=== PATIENT | male | born 1930 | race Caucasian/White ===

== ENCOUNTER 2017-03-14 05:53 | Day surgery (SDC) | payer MEDICARE, OTHER ==
[~2017-03-14] VITALS: Ht 152.4 cm; Wt 59.5 kg
[2017-03-14] VITALS (39 sets, daily range): BP systolic 64–165; BP diastolic 25–83; PULSE 54–62; RESP 10–30
[~2017-03-14 05:53] MED LIST: BENA20TA48 PO; CARV3.12 PO; CLOP75TA27 PO; EZET10TA3 PO; HYDR-3011 PO; INSU100V18 SC; NIT4 SL; PANT40TA4 PO; TEMA15CA PO
[2017-03-14] MEDS ORDERED: SOD CHLORIDE 0.9% 1,000 ML IV SCH ×2 (06:00→11:58)
[2017-03-14] MEDS ORDERED: FURO20TA3 PO (06:49)
[2017-03-14] MEDS ORDERED: COU1 PO (06:50)
[2017-03-14] MEDS ORDERED: SITA50TA2 PO (06:52)
[2017-03-14 07:02] LABS: ADD SCAN DIFF NO
[2017-03-14 07:05] LABS: BASOPHILS % 0.4 % (0.0-2.0); EOSINOPHILS # 0.1 10^3/ul (0.0-0.5); EOSINOPHILS % 2.4 % (0.0-7.0); HEMOGLOBIN 12.6 g/dl (14.0-18.0); LYMPHOCYTES # 0.9 10^3/ul (0.8-2.9); LYMPHOCYTES % 17.4 % (15.0-51.0); MEAN CORPUSCULAR HEMOGLOBIN 31.3 pg (29.0-33.0); MEAN CORPUSCULAR HGB CONC 34.1 g/dl (32.0-37.0); MEAN CORPUSCULAR VOLUME 91.8 fl (82.0-101.0); MEAN PLATELET VOLUME 10.9 fl (7.4-10.4); MONOCYTE # 0.6 10^3/ul (0.3-0.9); MONOCYTES % 10.7 % (0.0-11.0); NEUTROPHIL # 3.7 10^3/ul (1.6-7.5); NEUTROPHILS % 68.7 % (39.0-77.0); PLATELET COUNT 201 10^3/UL (140-415); RED BLOOD COUNT 4.03 10^6/ul (4.70-6.10); RED CELL DISTRIBUTION WIDTH 13.2 % (11.5-14.5); WHITE BLOOD COUNT 5.4 10^3/ul (4.8-10.8)
[2017-03-14 07:27] LABS: INR 1.28; PARTIAL THROMBOPLASTIN TIME 26.9 Sec (25.0-35.0); PROTIME 16.1 Sec (12.2-14.2); PT RATIO 1.3
[2017-03-14 07:42] LABS: CALCIUM 9.3 mg/dl (8.4-10.2); CREATININE 1.17 mg/dl (0.61-1.24); POTASSIUM 4.2 mmol/L (3.5-5.1)
[2017-03-14] MEDS ORDERED: MIDAZOLAM 1 MG/ML 2 ML INJ ONE ×2 (08:16→10:10)
[2017-03-14] MEDS ORDERED: FENTAnyl 50 MCG/ML VIAL ONE ×2 (08:16→10:10)
[2017-03-14] MEDS ORDERED: LIDOCAINE 1% (MDV) 20 ML INJ ONE (08:16)
[2017-03-14] MEDS ORDERED: IODIXANOL LOCM 100 ML BTL ONE ×2 (08:16→11:05)
[2017-03-14] MEDS ORDERED: HEPARIN 1000 UNITS/NS (A-LINE) 1,000 ML ONE (08:16)
[2017-03-14] MEDS ORDERED: VERAPAMIL 5 MG INJ ONE (09:02)
[2017-03-14] MEDS ORDERED: NITROGLYCERIN 50 MG/D5W (PMX) 250 ML ONE (09:05)
[2017-03-14] MEDS ORDERED: SOD CHLORIDE 0.9% 1,000 ML ONE (09:47)
[2017-03-14] MEDS ORDERED: CLOPIDOGREL 300 MG TAB ONE (11:33)
[2017-03-14] MEDS ORDERED: ASPIRIN 325 MG TAB ONE (11:33)
[2017-03-14] MEDS ORDERED: ACETAMINOPHEN 325 MG TAB PO PRN (12:00)
[2017-03-14] MEDS ORDERED: AL HYDROX/MG HYDROX/SIMETH 30 ML CUP PO PRN (12:00)
[2017-03-14] MEDS ORDERED: morphine 2 MG INJ IV PRN (12:00)
[2017-03-14] MEDS ORDERED: OXYCODONE/ACETAMINOPHEN (5/325) TAB PO PRN (12:00)
[2017-03-14] MEDS ORDERED: ONDANSETRON 4 MG INJ IV PRN (12:00)
--- NOTE | 2017-03-14 12:03 | PDOCDIS ---
Discharge Instructions CONDITION Patient Condition: Good HOME CARE INSTRUCTIONS: Diet Instructions: Low Fat /Cholesterol ACTIVITY: Activity Restrictions: Slowly Increase Activity Avoid heavy lifting (not more then 5 pounds for 4 days) Do not Drive (x 3 days) FOLLOW UP/APPOINTMENTS Appointments follow up with primary doctor follow up with "Coumadin" doctor for INR check in 3-4 days Anil Vaughan DO Mar 14, 2017 12:03
--- NOTE | 2017-03-14 13:42 | CARRPT ---
DATE OF PROCEDURE: 03/14/2017 PROCEDURES: 1. Distal abdominal aortogram with bilateral lower extremity runoff. 2. A third order catheter placement. 3. Orbital atherectomy of the mid right SFA, balloon angioplasty and drug- coated balloon angioplasty of the mid right SFA 5 x 150 mm Lutonix balloon. 4. Orbital atherectomy of the right popliteal into the PT region, balloon angioplasty and drug-coated balloon angioplasty of region with a 5 x 60 mm Lutonix balloon. 5. Interpretation and supervision of angiogram. 6. Left femoral artery approach. PATIENT HISTORY: This is an 87-year-old male with abnormal arterial lower extremity Dopplers and ABIs with lifestyle limiting claudication. DESCRIPTION OF PROCEDURE: Patient was brought to the clinical laboratory manager after informed consent. The patient was prepped and draped as per protocol. Left femoral artery access was obtained with a micropuncture kit and a 5-Armenian sheath was placed. We next used a 5-Armenian Omni flush, went up to the distal abdominal aorta. Distal abdominal aortogram was performed with bilateral lower extremity runoff. Patient with symptoms of lifestyle limiting claudication of the right lower extremity with severe disease noted in the mid right SFA as well as the popliteal. We used heparin for anticoagulation. We used a rim catheter to go up and over the iliac bifurcation and used an Advantage wire to go down to the right common femoral artery and used a 6-Armenian long sheath down into the right common femoral. We next used a V-18 wire to cross the mid lesions of the SFA down past the popliteal lesions into the peak into the peroneal. We next used a [employer] over wire catheter for support and switched out for a Viper wire and went down to near the ankle via the peroneal. We next used a 1.5 CSI atherectomy device then performed an atherectomy of the mid SFA with multiple runs. We next went down to the popliteal and did multiple runs with the CSI device. We next did balloon angioplasty of the popliteal into the PT trunk region. We next performed angioplasty within the mid SFA. A 5 mm balloon was used for both regions. Next, in the popliteal into the PT trunk region, we used a Lutonix 5 x 60 mm drug-coated balloon for prolonged inflation. We next used a 5 x 160 mm Lutonix drug-coated balloon in the mid SFA for lung inflations. There was an excellent angiographic result with no evidence of dissection. There was a 20% residual stenosis in the mid popliteal as well as 20% residual stenosis in the mid SFA. There was preserved lower extremity runoff with no evidence of embolization. All catheters and wires were removed. We switched out for a 6-Armenian short sheath to be pulled once ACT is appropriate. There were no immediate complications. FINDINGS: 1. Distal abdominal aorta with no significant disease. 2. Left side. Left common iliac, no significant disease. Proximal left external iliac 30% stenosis. Left common femoral distally 30% calcified stenosis. The left SFA with a proximal 50% stenosis, mid calcified 70% stenosis in tandem lesion was calcified region of at least 70% but difficult to ascertain given significant calcium. Left popliteal with mid calcified 30% stenosis. Anterior tibial proximal 30% stenosis and mid becomes a very small vessel with severe diffuse disease that becomes occluded. Posterior tibial with proximal 80% stenosis and mid 100% stenosis. The peroneal is patent all the way down to the ankle with multiple collaterals feeding the foot. 3. Right side. Right common iliac 10% disease. The right external iliac with mid 30% disease. Right common femoral with 20% diffuse disease. Right SFA with a proximal 30% stenosis and mid-multiple lesions of calcified disease with 90% and then 80% stenosis afterwards. The right popliteal with calcified 90% stenosis. The right anterior tibial with proximal 30% stenosis and monge out to a very small vessel with severe diffuse disease and subtotally occluded in the mid vessel. The right posterior tibial, 90% ostial disease and then proximal 100% occlusion. The peroneal with proximal 40% stenosis, patent down to the ankle with multiple collaterals feeding the foot DIAGNOSIS: Severe peripheral arterial disease with lifestyle limiting claudication. COMPLICATIONS: None. ESTIMATED BLOOD LOSS: Minimal. RECOMMENDATIONS: 1. Restart Coumadin. 2. Plavix therapy for a minimum of 1 month, but ideally longer if able to tolerate. 3. Endovascular Intervention of left lower extremity if symptomatic. Dictated By: TOM RILEY/MOISÉS Conf#: [id number] DID#: [id number] MTDD
--- NOTE | 2017-03-15 17:50 | RADRPT ---
Vent Rate: 55 bpm RR Interval: 0 msec UT Interval: 0 msec QRS Duration: 194 msec QT Interval: 492 msec QTC Interval: 470 msec P-R-T [place]: 0 - -66 - 93 degrees Electronic ventricular pacemaker Electronically Signed By: Merrick Miller [id number]
== END 2017-03-14 21:42 | disposition home or self-care (01) ==
LOC: SDS 05:53
PROVIDERS: ATTEND Internal Medicine Cardiovascular Disease
DX: I73.9 Peripheral vascular disease, unspecified (principal)
CPT/HCPCS: 37225; 75630; 80048; 82962; 85025; 85610; 85730; 93005; C1714; C1725; C1769; C1887; C1894; J1644; J2250; J3010; J7040; Q9967